=== PATIENT | female | born 2000 | race Caucasian/White ===

== ENCOUNTER 2025-05-09 23:41 | Day surgery (SDC) | payer OTHER, SELFPAY ==
[2025-05-09 13:26] VITALS: BP 148/86
[2025-05-09 13:58] LABS: Hematocrit 27.2 % (37.0-47.0); Hemoglobin 7.5 g/dL (12.0-16.0); Mean Corp Hgb Conc. 27.6 g/dL (33.0-37.0); Mean Corpuscular Volume 62.8 fL (81.0-99.0); Platelet Count 413 10^3/uL (130-400); Red Cell Dist. Width 19.5 % (11.5-14.5)
[2025-05-09 14:02] LABS: HCG, Serum Qualitative Screen Negative
[2025-05-09 14:06] LABS: ALT (SGPT) 13 U/L (0-35); AST (SGOT) 16 U/L (14-36); Albumin 4.7 g/dl (3.5-5.0); Alkaline Phosphatase 67 U/L (38-126); Blood Urea Nitrogen 12 mg/dl (7-17); Calcium 9.6 mg/dl (8.4-10.2); Carbon Dioxide 19 mmol/L (22-30); Chloride 107 mmol/L (98-107); Glucose 117 mg/dl (70-99); Lipase 45 U/L (23-300); Potassium 3.9 mmol/L (3.5-5.1); Sodium 139 mmol/L (135-145); Total Protein 8.1 g/dl (6.3-8.2); eGFR > 60.00
[2025-05-09 14:29] LABS: Nucleated Red Blood Cells % 0 %
[2025-05-09 14:30] LABS: Normal RBC Morphology No
[2025-05-09 14:32] LABS: Anisocytosis Slight
[2025-05-09 14:33] LABS: Hypochromasia Slight
[2025-05-09 14:34] LABS: Target Cells FEW
[2025-05-09 14:35] LABS: Ovalocytes FEW; Tear Drop Red Blood Cells FEW
[2025-05-09 14:37] LABS: Macrocytosis Slight
[2025-05-09 16:11] VITALS: BMI 50.2
[2025-05-09 16:23] VITALS: BP 125/66
[2025-05-09 16:24] VITALS: BP 125/66
[2025-05-09 16:47] LABS: Urine Character Cloudy (Clear)
[2025-05-09 16:54] LABS: Urine Red Blood Cell >100 /HPF (0-2); Urine Squamous Cell 26-30 /LPF (Few); Urine Urothelial Cell 0-2 /LPF (FEW); Urine White Cell 0-2 /HPF (0-5)
[2025-05-09 17:00] VITALS: BP 101/78
[2025-05-09] MEDS: ZOFRAN 4 MG IV (17:14)
[2025-05-09] MEDS: MORPHINE SULFATE 4 MG IV (17:15)
[2025-05-09] MEDS: OMNIPAQUE 50 ML PO (17:16)
[2025-05-09 18:22] VITALS: BP 134/73
[2025-05-09 19:11] LABS: Iron < 20 ug/dl (37-170)
[2025-05-09 19:20] LABS: Total Iron Binding Capacity 509 ug/dl (265-497)
[2025-05-09 19:47] LABS: Ferritin 5.3 ng/ml (6.24-137)
--- NOTE | 2025-05-09 22:01 | ED.GENMED ---
History of Present Illness
General
Chief Complaint: Abdominal Symptoms
Source: patient
Exam Limitations: none
Time Seen by Provider: 05/09/25 16:26
Nursing documentation reviewed up to this point in time: agreed with
History of Present Illness
History of Present Illness:
Patient to ED wt complaint of severe RLQ abdominal pain. Pain started this afternoon. Reports n/v. No fever/chills. Brought to ED by family for eval.
Past History
Past History
ED Past Medical History: Other (PCOS)
ED Past Surgical History: Other (abdominal hernia repair - child)
Review of Systems
Review of Systems
Allergies reviewed?: Yes
All Other Systems: ROS reviewed and negative except as documented in HPI and ROS
Constitutional: Reports no symptoms
EENT: Reports no symptoms
Respiratory: Reports no symptoms
Cardiac: Reports no symptoms
ABD/GI: Reports abdominal pain (RLQ), nausea and vomiting
: Reports bleeding (vaginal bleeding x 10 days)
Musculoskeletal: Reports no symptoms
Skin: Reports no symptoms
Neurological: Reports no symptoms
Psychiatric: Reports no symptoms
Phy Exam
General Physical Exam
General Presentation: moderate distress
General age: appears stated age
General Skin: warm and dry
General Habitus: normal
General Mental: alert
Cardiovascular Exam
Cardiovascular Exam: regular rate/rhythm and no edema
Pulmonary Exam
Pulmonary Exam: lungs clear and no respiratory distress
Gastrointestinal Exam
Gastrointestinal Exam: normal bowel sounds, soft, no organomegaly, no pulsatile mass, non distended and no cva tenderness
Palpation: left upper quadrant: No tenderness, left lower quadrant: No tenderness, right upper quadrant: Moderate tenderness and right lower quadrant: Severe tenderness
Rectal Exam: normal external exam, normal sphincter tone and soft stool
Stool: brown
Guaiac Status: negative
Genitourinary Exam Female
Exam Female: no bleeding, no CMT, no lesions and no vaginal discharge
Vaginal Exam: normal
Vaginal Bleeding: none
Visual exam of cervix: os open
Musculoskeletal Exam
Musculoskeletal Exam: full ROM and neuro vasc intact
Skin Exam
Skin Exam: normal color, warm/dry and no rash
Psychiatric Exam
Psychiatric Exam: normal mood/affect
Course
Orders/Labs/Results
Orders:
Orders
05/09/25 13:31
Test Result ONCE
05/09/25 13:34
Complete Blood Count/With Diff Urgent
Comprehensive Metabolic Panel Urgent
Ferritin Urgent
Comment: ADD ON
HCG, Serum Qualitative Screen Urgent
Comment: Notify provider if positive test present
Iron Urgent
Comment: ADD ON
Lipase Urgent
Total Iron Binding Urgent
Comment: ADD ON
05/09/25 16:29
Urinalysis Reflex To Culture Urgent
Date Specimen was Collected: 05/09/25
Time Specimen was Collected: 16:28
Urine Microscopic Reflex Cult Urgent
Urine Culture Urgent
VERO Source: U
Specimen Description:
Date Specimen was Collected: 05/09/25
Time Specimen was Collected: 16:28
05/09/25 16:37
US Pelvis W Transvag Combined Urgent
Reason For Exam: RLQ pain
05/09/25 16:38
Iohexol [Omnipaque] See Protocol PO NOW STA
05/09/25 16:54
Morphine Sulfate 4 mg IV NOW STA
Ondansetron Injectable [Zofran] 4 mg IV NOW STA
05/09/25 18:32
Add On - Microbiology Urgent
Tests Added?: Iron, ferritin, TIBC
05/09/25 19:35
CT Abd/pel W Iv And Oral Contr Urgent
Comment:
Reason For Exam: RLQ pain
05/09/25 22:19
Type And Crossmatch [Type+Screen] Urgent
05/09/25 22:40
ABO2 Urgent
BBK Wristband Number:
Associate notified that ABO2 has been ordered: [id number]
Date: 05/09/25
Time: 22:29
Head Porter ID: [id number]
05/09/25 22:57
Dexamethasone Sod Phosphate [Decadron] 20 mg .ROUTE .STK-MED ONE
Lidocaine 2% Mpf [Xylocaine Mpf 2%] 100 mg .ROUTE .STK-MED ONE
Ondansetron Injectable [Zofran] 4 mg .ROUTE .STK-MED ONE
Propofol [Diprivan] 20 ml .ROUTE .STK-MED
05/09/25 22:59
Bupivacaine Mpf 0.25% [Sensorcaine-Mpf 0.25% Vial] 30 ml .ROUTE .STK-MED ONE
05/09/25 23:00
Fentanyl Citrate/Pf [Sublimaze] 100 mcg .ROUTE .STK-MED ONE
Midazolam HCl [Versed] 2 mg .ROUTE .STK-MED ONE
05/09/25 23:45
Normosol (Mult Electrolytes) [Normosol-R/Plasmalyte-A] 1,000 ml IV PER PROTOCOL
05/09/25 23:57
Fentanyl Citrate/Pf [Sublimaze] 25 mcg IV [id number] PRN
Fentanyl Citrate/Pf [Sublimaze] 25 mcg IV PACU-Q5MPRN PRN
Fentanyl Citrate/Pf [Sublimaze] 50 mcg IV PACU-Q5MPRN PRN
Ondansetron Injectable [Zofran] 4 mg IV PACU-ONCEPRN PRN
Prochlorperazine [Compazine] 5 mg IV PACU-ONCEPRN PRN
05/10/25 00:27
Acetaminophen 1000MG/100Ml [Ofirmev] 1,000 mg in 100 ml .ROUTE .STK-MED
05/10/25 00:33
Sugammadex Sodium [Bridion] 200 mg .ROUTE .STK-MED ONE
05/10/25 00:55
Fentanyl Citrate/Pf [Sublimaze] 100 mcg .ROUTE .STK-MED ONE
05/10/25 01:30
Rocuronium [place] [Rocuronium] 50 mg .ROUTE .STK-MED ONE
05/10/25 02:59
Ketorolac [Toradol] 30 mg .ROUTE .STK-MED ONE
05/10/25 03:55
OR Cytology Routine
Date Specimen was Collected: 05/10/25
Time Specimen was Collected: 03:00
Source: Pelvic Washings
Clinical Impression: Right Adnexal Cystic Mass
Comment: Pelvic Washings
05/10/25 03:57
OR Pathology Routine
Pre-Operative Diagnosis: Right Adnexal Cystic Mass
Operative Procedure: Laparoscopic Ovarian Cystectomy
Surgeon: Ish
Circulating Nurse: Jarret
Specimen Type: Endometrial Curettage
:: Right Paratubal Cyst Wall
05/10/25 04:16
Admit/Transfer Patient As Directed
Co-Sign Provider:
Level of Care: Post Proc/Surg Recovery
Assign to:: Medical/Surgical
Physician / Group: Ish
Transfer to: Medical/Surgical
Diagnosis: right adnexal torsion; right paratubal cyst; menorrhagia
Patient Condition: Good
Reason for Hospitalization: Operative laparoscopy, excision right paratubal cyst; dilation and curettage
Expected length of stay greater than two midnights?: No
ELOS- Estimated Length of Stay in days: 1
Reason for Overnight Stay: Bleeding/Bleeding Risk
Other Reason for Overnight Stay: anemia; postsurgical recovery
PRN Pain Medication Management As Directed
May give lesser potent ordered pain med per pt: Yes
preference::
Protocol:: Medication orders for pain may be administered in a
manner that supports deferring to patient preference
when the pt is:
- Requesting an ordered lesser potent pain medication.
Least to most potent pain medications are defined
as: acetaminophen < NSAID < tramadol < opioids
(morphine, oxycodone, hydromorphone).
- Requesting a lesser dose of the same medication IF
ORDERED.
- Requesting a less intrusive route of administration
if both routes are prescribed by the provider (PO <
IV).
05/10/25 04:25
Acetaminophen [Tylenol] 650 mg PO Q4HPRN PRN
Ondansetron Injectable [Zofran] 4 mg IV Q6HPRN PRN
Oxycodone [Roxicodone] 2.5 mg PO Q4HPRN PRN
Oxycodone [Roxicodone] 5 mg PO Q4HPRN PRN
Sennosides [Senokot] 8.6 mg PO BIDPRN PRN
Simethicone [Mylicon] 80 mg PO Q6HPRN PRN
05/10/25 04:25
Activity As Directed
Activity Level: Out of Bed-Early Mobility
INT (Intravenous Needle Therapy) As Directed
Intake/ Output As Directed
Frequency: Per unit guidelines
Call for Urine Output less than: 30 mL over 1 hour
Comment: Strict Intake and Output
Notify MD As Directed
Notify physician if: Call doctor for temperature >100.4 F, systolic blood pressure > 150 or < 90, urine output
less than 30 mL over 1 hour, Pulse > 100 or < 50
Pneumatic Compression Sleeves As Directed
Type: Thigh high
Comment: d/c once out of bed
Vital Signs As Directed
Frequency: Per unit guidelines
Vital Signs As Directed
Frequency: Post-operative guidelines
Call for:: temp > 100.4 F, SBP > 150 or < 90, Pulse > 100 or < 50
DX Deep Vein Thrombosis Video Routine
05/10/25 05:00
Ketorolac [Toradol] 15 mg IV Q6H
05/10/25 Breakfast
Regular
At Your Request: Full Participation
Does patient need a safe tray?: No
Abnormal Lab Results
05/09/25 05/09/25 05/09/25
13:34 16:29 22:19
WBC 13.9 H 10^3/uL
(4.8-10.8)
Hgb 7.5 L g/dL
(12.0-16.0)
Hct 27.2 L %
(37.0-47.0)
MCV 62.8 L fL
(81.0-99.0)
MCH 17.3 L pg
(27.0-31.0)
MCHC 27.6 L g/dL
(33.0-37.0)
RDW 19.5 H %
(11.5-14.5)
Plt Count 413 H 10^3/uL
(130-400)
Abs Immat Gran (auto) 0.1 H 10^3/uL
(0-0.05)
Absolute Neuts (auto) 7.8 H 10^3/uL
(1.4-6.5)
Absolute Lymphs (auto) 4.8 H 10^3/uL
(1.2-3.4)
Absolute Monos (auto) 0.9 H 10^3/uL
(0.1-0.6)
Carbon Dioxide 19 L mmol/L
(22-30)
Glucose 117 H mg/dl
(70-99)
Iron < 20 L ug/dl
(37-170)
TIBC 509 H ug/dl
(265-497)
Ferritin 5.3 L ng/ml
(6.24-137)
Urine Ketones 1+ A
(Negative)
Ur Occult Blood Reflex 4+ A
(Negative)
Leukocyte Esterase Rfl 1+ A
(Negative)
Urine RBC >100 A /HPF
(0-2)
Urine Albumin (Reflex) 3+ A
(Neg - Trace)
Crossmatch IS Only See Detail
05/09/25 13:34
05/09/25 13:34
Vital Signs
Initial and Last Documented VS:
Initial Vital Signs
Temp Pulse Resp BP Pulse Ox
97.5 F 73 22 148/86 100
05/09/25 13:26 05/09/25 13:26 05/09/25 13:26 05/09/25 13:26 05/09/25 13:26
Last Documented Vital Signs
Temp Pulse Resp BP Pulse Ox
98.4 F 85 16 155/95 96
05/10/25 11:00 05/10/25 11:00 05/10/25 11:00 05/10/25 11:00 05/10/25 11:00
*Radiology
Radiology exam reviewed: radiology read reviewed
*Pulse Oximetry
SaO2: 98
Oxygen Mode of Delivery: Room air
Patient hypoxic: no
*Critical Care Note
Total Time (30-74mins, 75-104mins- exclusive of procedures): Not Applicable
Update Note
Update Note:
Labs, US, CT reports reviewed. Hgb 7.5 Patient reports history of anemia in the past but does not recall actual results. No recent lab work drawn. No labwork here to compare. REports history of PCOS diagnosed many years ago at [facility]. SHe left
that practice and began to follow with an jewel hole driller. Was on OBC for many years but stopped med on her own 2 years ago. Has not followed with jewel hole driller. Reporst bleeding for longer time during her periods. Reports passing clots.
Reports changing pads 3-5 x day. No bleeding noted on pelvic exam today. US report 'large right ovarian cyst measuring up to 12.3 cm. Difficulty obtaining blood flow concerning for possible torsion. Discussed patient presentation, labs, US and
CT results wtih Dr. Deng. WIll take to OR tonight for exp. lap to r/o torsion. Discussed above with patient and she is agreeable to plan.
ED Attending Note
-
Portions of this chart may have been created with voice recognition software.� Occasional wrong word or��sound alike� substitutions may have occurred due to the inherent limitations of voice recognition software.
Discharge Plan
Departure
Patient Disposition: OR
Date of Disposition: 05/09/25
Time of Disposition: 23:05
Presentation/result/management discussed w/ accepting MD/DO: Ish Mcghee
Patient with high blood pressure during this ER visit?: Yes
Condition: Fair
Covid-19: Not Applicable
Discharge Problem:
Ovarian torsion, Ovarian cyst
Interventions
Interventions:
*Risk Screen - Suicide Last Done: 05/09/25 13:26
*General Assessment Last Done: 05/09/25 16:19
*Neglect/Abuse Screening Last Done: 05/09/25 16:23
*ED- Fall Risk Assessment Last Done: 05/09/25 16:19
*ED COVID-19 Vaccine History Last Done: 05/09/25 16:19
*Nursing Disposition Last Done: 05/10/25 00:21
W[place]-[id number]-[id number] Assessment Last Done: 05/09/25 16:43
Discharge Date and Time
Discharge Date/Time: 05/10/25 00:25
[2025-05-10] VITALS (10 sets, daily range): BP systolic 125–155; BP diastolic 58–95; BMI 49.4
--- NOTE | 2025-05-10 04:21 | W.IMMPOSTOP ---
Addendum entered and electronically signed by Deanna Deng DO 05/10/25 22:03:
pelvic washings also performed as part of procedure
Original Note:
Surgical Immed Post Op Note
-
Primary Surgeon: Deanna Deng DO
Consulting and home based assistant surgeon: Dr. Blas Spicer. Requested for assistance with port access and providing surgeon level assistance with tissue retraction for exposure due to difficulty of access secondary to body habitus/morbid obesity and need
for surgeon level assistance due to complexity of anatomy.
Pre-op Diagnosis: Right adnexal cystic mass with possible torsion, menorrhagia
Post-op Diagnosis: right paratubal cyst with torsion, menorrhagia
Procedure Performed: Dilation and curretage; operative laparoscopy with detorsion and excision of right paratubal cyst
Anesthesia Type: general ET Dr. Rodriguez
Specimen / Cultures: 1. endometrial curettings 2. pelvic washings 3. right paratubal cyst wall
Estimated Blood Loss:10ml
paredes 300ml clear yellow urine.
Complications: none
Operative Findings: Enlarged right adnexal cystic mass approx 13 cm with torsion. Normal appearing uterus, tubes and ovaries bilaterally.
Counts correct times 2.
Stable to recovery
--- NOTE | 2025-05-10 04:59 | PTCARENOTE ---
Pt arrived to [facility] from PACU, AAOx3, very pleasant. 5 lap sites with surg. glue CDI. Pt only c/o tenderness to palpation of surgical sites. VSS, oriented to room and plan of care. Assessment on going
[2025-05-10] MEDS: TORADOL 15 MG IV ×2 (05:44→12:57)
--- NOTE | 2025-05-10 12:55 | W.DS.TRANS ---
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
-
Discharge Instructions:
Discharge Diagnosis/Procedures Right paratubal cystic mass with torsion,
menorrhagia. Operative laparoscopy, detorsion of
adnexal cyst, right paratubal cyst excision,
dilation and curettage.
Diet Regular
Activity No restrictions
Driving Restrictions do not drive while taking narcotic pain
medication
Bathing Restrictions dry incisions well after bathing.
Wound Care call if incisions become red, have drainage that
looks like pus. Incisions ae closed with suture
and glue.
Instructions:
Stand-Alone Forms:
Changes to Home Medications: No
Discharge Medications:
DC Medications w/original date entered in [employer]
acetaminophen 325 mg tablet 650 mg (2 x 325 mg) PO Q4HPRN PRN mild pain #0 tabs 05/10/25
ibuprofen 600 mg tablet 600 mg PO Q6H PRN mild cramps #1 tab 05/10/25
Home Medication Changes
Pending Results: Yes
Additional Pending Results:
pathology
Total time spent discharging patient (in min): 30
--- NOTE | 2025-05-10 12:55 | W.PN.OBG.DWH ---
Today's Communication / Plan
-
dc home
Assessment/Plan
-
Postop s/p D&C, operative laparoscopy with detorsion of right adnexal cystic complex, excision of right paratubal cyst (13cm).
Menorrhagia
Iron deficiency Anemia- chronic related to menorrhagia
Morbid obesity
Stable postop. Yolis diet and voiding without issue.
Stable for discharge to home. Detailed written and verbal instructions reviewed.
Recommend seeing hematology for outpt mgmt anemia- gave # for [facility] and recommend calling for appt.
Discussed concerns re: BMI and health implications and recommend seeing Dr. Clarke for further consultation and assistance. She is getting in June and hoping to have children in the future.
Explained BMI is linked to infertility issues, risk for Preeclampsia, Diabetes and adverse outcomes including higher risk for stillbirth and risk for csection. Advised it would be optimal to lose weight prior to attempting to conceive. She
may be a candidate for medications (GLPs).
Reviewed dc limitations, restrictions, follow up .
Questions answered.
Keegan and her Mother present.
D/C home today.
Subjective Data
-
Postop check:
Feeling well- much less pain than what brought her to hospital.
Denies any significant pain, fever, chills, abdominal or pelvic pain.
Tolerating diet.
Denies nause, vomiting.
Objective Data
-
Laboratory Results
05/09/25 13:34
05/09/25 13:34
Vital Signs
Temp Pulse Resp BP Pulse Ox
98.4 F 85 16 155/95 96
05/10/25 11:00 05/10/25 11:00 05/10/25 11:00 05/10/25 11:00 05/10/25 11:00
Gen: well appearing, nontoxic, no acute distress. Conversant, pleasant.
VSS afeb
Cor: regular rate
Normal respiratory rate, no increased work of breathing.
abd: soft, +BS NDNT, incisions clean, dry and intact.
Ext: no calf pain
--- NOTE | 2025-05-10 14:39 | CM ---
Patient discharged before Case Management completed assessment.
Nursing reported that the patient had no needs and transportation home. She was ready to go.
--- NOTE | 2025-05-10 21:14 | HPS.HSE ---
Family Physician
-
Family Physician: * NONE
Chief Complaint
-
abdominal pain/RLA abd pain (H&P was handwritten at time patient seen by me last evening). H&P was given to ER community health coordinator to scan in. I do not see where it is located in chart. Original was placed with surgical paperwork and OR consents and not
scanned in yet).
History of Present Illness
24 yo G0 female with LMP 04/26/25 presented to ER with complaint of worsening abdominal pain today. Pain relatively sudden onset, severe. Started in midline lower abdomen and radiating more to RLQ now. Had associated Nausea and vomiting.Came to ER
with emilio� and her mother. Denies any fever, chills, diarrhea, constipation, dysuria. Reports heavy menstrual bleeding. LMP started approximately April 26 and has been heavy for the past 10 days. She reports feeling fatigue. Denied any
dizziness or lightheadedness.
Has not seen a bowling ball finisher in approximately 5 years. Formally saw [facility] at [facility] but was unhappy with her care and did not return. Has never had a Pap smear.
Medical History
Past Medical History
Past Medical History: Reports Other (Morbid obesity, insulin resistance, menorrhagia)
Past Surgical History: Reports None
Social History
Tobacco: Non-smoker
Alcohol: Occasional
Drug: None
Personal: Other (Engaged)
Family History
Family History: Not pertinent
Allergies / Home Medications
Allergies reflects when Allergies were last updated in [facility].
Home Medications with original date entered in [facility]
Allergy/Medication List:
NKDA
Review of Systems
-
History Source: Patient and Coordinated Provider
A 12 point ROS was completed and negative except as noted: Yes
Constitutional: Reports Fatigue
EENT: Reports No Symptoms
Respiratory: Reports No Symptoms
Cardiac: Reports No Symptoms
Abdomen/GI: Reports Abdominal Pain (midline and RLQ pain)
: Reports Bleeding (hx heavy menses)
Musculoskeletal: Reports No Symptoms
Skin: Reports No Symptoms
Neurological: Reports No Symptoms
Endocrine: Reports No Symptoms
Hematologic/Lymphatic: Reports Other (heavy menses)
Psych: Reports No Symptoms and Calm
Physical Exam
Vital Signs
Vital Signs
Temp Pulse Resp BP Pulse Ox
98.4 F 85 16 155/95 96
05/10/25 11:00 05/10/25 11:00 05/10/25 11:00 05/10/25 11:00 05/10/25 11:00
Physical Exam
General: Well Developed, No Apparent Distress (had received pain meds IV prior to me seeing her), Conversant and Morbidly Obese
HEENT: NormoCephalic
Respiratory: Clear
Cardiac: Regular Rhythm
Breast: N/A
GI: Soft, Non Distended, Normal Bowel Sounds, Tender (tenderness genral lower abdomen, more pronounced in midline and RLQ) and Other (rotund)
Rectal: Deferred by Provider
Genito-urinary: Other (normal sized uterus, no abnormal vaginal discharge, palpable mass in midline to level just below umbilicus)
Musculoskeletal: No Clubbing and No Cyanosis
Skin: Warm and Dry
Neuro: Awake, Alert, Oriented and Nonfocal/grossly intact
Hematologic/Lymphatic: No Lymphadenopathy
Psych: Calm and Intact Judgment/Insight
Laboratory Results
-
05/09/25 13:34
05/09/25 13:34
Laboratory Results
Total Bilirubin 0.6 mg/dl (0.2-1.3) 05/09/25 13:34
AST 16 U/L (14-36) 05/09/25 13:34
ALT 13 U/L (0-35) 05/09/25 13:34
Alkaline Phosphatase 67 U/L (38-126) 05/09/25 13:34
Lipase 45 U/L (23-300) 05/09/25 13:34
Pelvic ultrasound: Uterus measures 11.4 x 3.7 x 5.0 cm. No uterine mass. Endometrium measures 11 mm with diffuse relatively homogeneous echogenicity. 2 mm endometrial cyst.
Right ovary measures 10.7 x 12.8 x 12.2 cm, enlarged secondary to dominant simple cyst measuring 9.8 x 12.3 x 9.8 cm. There appears to be difficulty in obtaining right ovarian arterial blood flow, though there is venous waveform pattern. Although
absent arterial waveform would be highly suspect for torsion, 1 would expect little or no ovarian venous flow.
Left ovary 3.3 x 2 x 3 cm. Small follicles.
No free pelvic fluid.
CT abdomen/pelvis with IV and oral contrast:
Lung bases clear. No pleural effusion. Liver with within normal limits. No bile duct dilatation. Pancreas mild fatty infiltration in the region of the pancreatic head. Spleen normal size. No adrenal mass. No obstructive uropathy. No bowel
obstruction or bowel wall thickening. No anterior abdominal wall hernia. No retroperitoneal periaortic mass or adenopathy. No aortic aneurysm.
Right ovary situated to the right of midline in the upper pelvis, rounded in configuration measuring approximately 3.5 x 3.0 x 3.2 cm. There is a contiguous exophytic cyst projecting from the medial margin of the right ovary. Cyst measures 13 x
5.4 cm x 12 cm. There are 2 subtle nodules at the lateral and inferior lateral margin of the cyst with each nodule measuring approximately 5 mm. There appears to be subtle nodularity at the posterior margin measuring approximately 7 mm. The
possibility of a benign or low-grade malignancy cannot be entirely excluded. Otherwise no significant wall thickening. No adjacent or surrounding inflammatory or reactive soft tissue stranding. No apparent twisting configuration of the adnexa or
broad ligament.
Unremarkable appearance of the left ovary 3 x 2.7 cm.
No urinary bladder calculus or wall thickening.
Unremarkable uterus.
No ascites. No adenopathy.
Impression: Dominant right ovarian cyst appears predominantly simple, though there are 3 tiny mural nodules. The possibility of benign or low-grade malignancy cannot be entirely excluded. No significant wall thickening. No acute inflammatory
process within the abdomen or pelvis. The appendix is normal. No bowel obstruction. No obstructive uropathy.
Data Reviewed
-
Diagnostic Radiology: Report Reviewed by me, Discussed with Physician (d/w ER provider), Discussed with Nurse, Discussed with Patient and Discussed with Family
CT Scan: Report Reviewed by me and Discussed with Physician (ER provider)
Ultrasound: Report Reviewed by me, Discussed with Physician (d/w ER [employer] ADMINISTRATOR), Discussed with Nurse, Discussed with Patient and Discussed with Family
Medical Tests (Nuc Med, Echo, EKG etc): Report Reviewed by me, Discussed with Patient and Discussed with Family
Lab Data: Labs Reviewed by me, Discussed with Nurse, Discussed with Patient and Discussed with Family
Impression/Plan
-
IMPRESSION:
1. Acute right lower quadrant abdominal pain
2. Right adnexal cystic mass-concern for possible torsion. Torsion cannot be ruled out on imaging.
3.menorrhagia
4. iron deficiency anemia from acute on chronic blood loss/heavy periods
5. morbid obesity
PLAN:
Recommend Diagnostic/operative laparoscopy with plan for cystectomy, dilation and curettage. Discussed possible need for removal of right tube and ovary if involved in torsion and if there is no evidence of viable tissue. Plan for pelvic washings
due to cystic nodules of unknown significance. I did Discussed the possibility of adnexal cyst representing a benign versus lesion of low malignant potential. Will need to evaluate further at the time of surgery. She was counseled that if final
pathology reveals low-grade borderline tumor/low-grade malignancy or malignancy, additional follow-up with [employer] [employer] oncologist would be recommended. Dilation and curettage is recommended to obtain endometrial biopsy given her heavy menses. Given morbid
obesity she has risk factors for endometrial hyperplasia and I feel this is a good time to obtain a biopsy to rule this out.
She was counseled (in the presence of her fianc� and her mother) regarding the recommendation, nature of the procedure, anticipated length of surgery, benefits risks and alternatives. I do not recommend you waiting for surgery in the event that
there is torsion as this may compromise her adnexa. She was counseled about the risks of the procedure which include but are not limited to infection, bleeding, injury to any internal tissues/structures/organs. These may include but are not
limited to bowel, bladder, ureter, blood vessels, nerves or other surrounding structures.
She was counseled about additional risks which may include hernia, increased risk for thromboembolic events, potential need for additional surgeries not planned today or in the near future, potential for laparotomy, potential for extended
hospitalization and/or recovery. Since she is anemic, I ordered a type and cross for 2 units of blood for the operating room in the event that there is hemorrhage, although this is not anticipated. She was counseled about blood transfusion risks
benefits and informed consent has been obtained. She is suspected to have acute on chronic anemia and is relatively asymptomatic in terms of her anemia with the exception of fatigue. I did speak with Dr. Rodriguez, anesthesiology, and we both felt it
would be reasonable to hold off on blood transfusion at this time since she is asymptomatic. The anticipated recovery, restrictions and postoperative follow-up were discussed briefly and will be discussed in more detail following surgery. Given
the time of seeing the patient and anticipated time of surgery, I plan to keep her overnight and discharge in the morning. She had opportunity to have her questions answered and these were answered to her satisfaction. Her emilio� and her mother
were present for the entire discussion. Informed consent has been obtained.
I informed the anesthesia team and nursing supervisor operations as well as ER provider.
Time face to face consultation, coordinating care and formuating plan over 60 min.
--- NOTE | 2025-05-14 17:15 | W.IMMPOSTOP ---
Surgical Immed Post Op Note
-
Primary Surgeon: Blas Spicer MD
Assisting Surgeon: Deanna Deng MD
Pre-op Diagnosis: Ovarian torsion
Post-op Diagnosis: Torsion of fallopian tubes cyst
Procedure Performed: Diagnostic laparoscopy
Anesthesia Type: General
Specimen / Cultures: Per Dr. Deng
Estimated Blood Loss: Per Dr. Deng
Complications: None
Operative Findings: Consulted for assistance with abdominal access; obtained access via Veress and Optiview technique; Dr. Deng continued with her portion of the surgery
--- NOTE | 2025-05-14 17:16 | OR.RPT ---
Operative Report
Operative Report
DATE OF OPERATION: 05/10/2025
SURGEON: Blas Spicer MD
PREOPERATIVE DIAGNOSIS: Right ovarian torsion
POSTOPERATIVE DIAGNOSIS: Torsion of right fallopian tube cyst
OPERATION: Diagnostic laparoscopy
ASSISTANTS:
1. Deanna Deng MD
ANESTHESIA: General
ESTIMATED BLOOD LOSS: Per Dr. Deng
SPECIMENS:
1. Per Dr. Deng
DRAINS: None
COMPLICATIONS: No immediate complications.
INDICATIONS: I was consulted by Dr. Deng to assist with abdominal access. After arriving in the operating room, I discussed the case with Dr. Deng. She had a concern for possible ovarian torsion due to an adnexal cyst. She took the patient
urgently to the operating room. However, due to the adiposity of the abdominal wall, she was unable to obtain access through the usual minimally-invasive techniques despite multiple attempts. The patient was intubated in lithotomy position with
her arms secured to the arm boards in extended position. I scrubbed in to assist.
PROCEDURE IN DETAIL: The patient was already intubated in lithotomy position, abdomen prepped and draped and a uterine manipulator in place. Dr. Deng had made a left upper quadrant stab incision for an attempt at Veress needle placement, as well
as an umbilical incision and left mid abdominal incision to attempt Optiview access. I made a separate stab incision in the left upper quadrant, 1 fingerbreadth away from the costal margin along the anterior nipple line. I inserted the Veress
needle. After 3 clicks, I attached to insufflation. The opening pressure was less than 9 mmHg. The abdomen insufflated symmetrically to 15 mmHg and the patient tolerated this well. Using the umbilical incision, I advanced a 5 mm port with
Optiview technique. I carefully obtained abdominal access, avoiding injury to any intraperitoneal structures. The abdomen was examined. No injury from the attempts from abdominal access were seen from either of the previously made incisions or
the 2 locations of the Veress needle attempts. There was a large cystic structure originating from the right adnexa making visualization of the pelvis difficult. At this point, Dr. Deng performed the remainder of the procedure. I stayed to
assist with traction, countertraction and with driving the laparoscopic camera. The remainder of the operation will be dictated by her. The patient tolerated my portion of the procedure well.
DICTATED BY: Blas Spicer MD
== END 2025-05-10 14:39 | disposition home or self-care (01) ==
LOC: SDS 23:41
PROVIDERS: Emergency Medicine; Nurse Practitioner; ATTENDING PHYSICIAN Obstetrics & Gynecology; EMERGENCY PHYSICIAN Emergency Medicine
DX: N83.201 Unspecified ovarian cyst, right side (principal); N83.511 Torsion of right ovary and ovarian pedicle; N92.0 Excessive and frequent menstruation with regular cycle; E66.01 Morbid (severe) obesity due to excess calories; N83.8 Other noninflammatory disorders of ovary, fallopian tube and broad ligament; N84.0 Polyp of corpus uteri; D62 Acute posthemorrhagic anemia
CPT/HCPCS: 58662; 58120; 74177; 76830; 76856; 80053; 81003; 81015; 82728; 83540; 83550; 83690; 84703; 85025; 86850; 86900; 86901; 86920; 87086; 88112; 88304; 88305; 96374; 96375; 99285; Q9967

== ENCOUNTER → 2025-06-11 14:36 | Outpatient (REF) | payer OTHER, SELFPAY ==
[2025-06-11 13:43] LABS: Hematocrit 26.4 % (37.0-47.0); Hemoglobin 7.4 g/dL (12.0-16.0); Mean Corp Hgb Conc. 28.0 g/dL (33.0-37.0); Mean Corpuscular Volume 66.3 fL (81.0-99.0); Platelet Count 346 10^3/uL (130-400); Red Cell Dist. Width 22.8 % (11.5-14.5)
== END ==
LOC: OIDL 14:36
PROVIDERS: ATTENDING PHYSICIAN Nurse Practitioner Adult Health
DX: D50.9 Iron deficiency anemia, unspecified (principal)
CPT/HCPCS: 85025

== ENCOUNTER → 2025-06-17 15:46 | Outpatient (REF) | payer OTHER, SELFPAY ==
[2025-06-17 14:23] LABS: Hematocrit 29.2 % (37.0-47.0); Hemoglobin 8.0 g/dL (12.0-16.0); Mean Corp Hgb Conc. 27.4 g/dL (33.0-37.0); Mean Corpuscular Volume 70.9 fL (81.0-99.0); Platelet Count 346 10^3/uL (130-400); Red Cell Dist. Width 25.5 % (11.5-14.5)
== END ==
LOC: OIDL 15:46
PROVIDERS: ATTENDING PHYSICIAN Nurse Practitioner Adult Health
DX: D50.9 Iron deficiency anemia, unspecified (principal)
CPT/HCPCS: 85025